=== PATIENT | female | born 1990 | race Caucasian/White ===

== ENCOUNTER 2021-02-17 19:47 | Emergency (ER) | payer OTHER ==
[2021-02-17 19:54] VITALS: BMI 29.8
[2021-02-17 21:00] LABS: URINE APPEARANCE CLOUDY; URINE BILIRUBIN NEGATIVE (NEGATIVE); URINE COLOR YELLOW; URINE GLUCOSE (UA) NEGATIVE (NEGATIVE); URINE KETONE NEGATIVE (NEGATIVE); URINE LEUK ESTERASE NEGATIVE (NEGATIVE); URINE NITRITE NEGATIVE (NEGATIVE); URINE PROTEIN NEGATIVE (NEGATIVE)
[2021-02-17 21:02] LABS: HCG,QUALITATIVE URINE Negative
[2021-02-17] MEDS ORDERED: ONDANSETRON *ODT* 4 MG TABLET SL ONE (23:25)
[2021-02-17] MEDS ORDERED: ACETAMINOPHEN 500 MG TABLET (FP) PO ONE (23:25)
[2021-02-17] MEDS ORDERED: ACETAMINOPHEN 325 MG TABLET (FP) ONE (23:31)
[2021-02-17] MEDS ORDERED: ONDANSETRON *ODT* 4 MG TABLET ONE (23:31)
[2021-02-18] MEDS ORDERED: KETOROLAC TROMETHAMINE 30 MG/1 ML VIAL IVPUSH ONE (00:06)
[2021-02-18] MEDS ORDERED: KETOROLAC TROMETHAMINE 30 MG/1 ML VIAL ONE (00:20)
[2021-02-18] MEDS ORDERED: SODIUM CHLORIDE 1,000 ML IV STA ×2 (00:22→01:26)
[2021-02-18 00:44] LABS: BASO % 0.2 % (0-2.0); HEMATOCRIT 36.1 % (32.4-45.2); HEMOGLOBIN 11.5 GM/dL (10.7-15.3); LYMPH % 5.3 % (8-40); MCH 23.8 pg (25.7-33.7); MCHC 31.8 g/dl (32.0-36.0); MEAN CELL VOLUME 74.8 fl (80-96); MEAN PLT VOLUME 8.9 fl (7.5-11.1); MONO % 4.4 % (3.8-10.2); NEUT % 90.1 % (42.8-82.8); PLATELET COUNT 272 K/MM3 (134-434); RBC 4.83 M/mm3 (3.60-5.2); RDW 13.9 % (11.6-15.6); WHITE BLOOD COUNT 13.1 K/mm3 (4.0-10.0)
[2021-02-18 00:59] LABS: CALCIUM 9.3 mg/dL (8.5-10.1)
[2021-02-18 01:00] LABS: ALBUMIN 4.2 g/dl (3.4-5.0); BLOOD UREA NITROGEN 14.6 mg/dL (7-18)
[2021-02-18 01:03] LABS: CREATININE 0.8 mg/dL (0.55-1.3)
[2021-02-18 01:04] LABS: BILIRUBIN,TOTAL 0.8 mg/dL (0.2-1)
[2021-02-18 01:05] LABS: TOT PROT 6.9 g/dl (6.4-8.2)
[2021-02-18] MEDS ORDERED: METOCLOPRAMIDE HCL INJECTION 10 MG/2 ML VIAL IVPB ONE (01:24)
[2021-02-18] MEDS ORDERED: traMADol HCL 50 MG TABLET PO ONE (01:26)
[2021-02-18] MEDS ORDERED: traMADol HCL 50 MG TABLET ONE (01:38)
[2021-02-18] MEDS ORDERED: METOCLOPRAMIDE HCL INJECTION 10 MG/2 ML VIAL ONE (01:38)
[2021-02-18 02:15] VITALS: BP 133/75; PULSE 82; TEMP 97.7
== END 2021-02-18 02:30 | disposition home or self-care (01) ==
LOC: JER 19:47
PROC: 3E0333Z Introduction of Anti-inflammatory into Peripheral Vein, Percutaneous Approach (ICD-10-PCS; principal; 2021-02-17)
PROC: 3E033GC Introduction of Other Therapeutic Substance into Peripheral Vein, Percutaneous Approach (ICD-10-PCS; 2021-02-17)
PROC: 3E0337Z Introduction of Electrolytic and Water Balance Substance into Peripheral Vein, Percutaneous Approach (ICD-10-PCS; 2021-02-17)
PROC: 3E0337Z Introduction of Electrolytic and Water Balance Substance into Peripheral Vein, Percutaneous Approach (ICD-10-PCS; 2021-02-17)
DX: R10.84 Generalized abdominal pain (principal); N13.30 Unspecified hydronephrosis
CPT/HCPCS: 36415; 71046-TC-FY; 74176-TC; 76775-TC; 76856-TC; 80053; 81003; 84703; 85025; 87086; 99285-25; Q0162